=== PATIENT | male | born 1975 | race Hispanic/Latino ===

== ENCOUNTER → 2024-12-11 | Day surgery (SDC) | payer OTHER ==
[2024-12-06 09:25] VITALS: BMI 24.7
[~2024-12-11] MED LIST: Bupivacaine/Epinephrine 0.25% 30 ML VIAL ONE; CEFAZOLIN 2 GM VIAL ONE; HYDROcodone/Acetaminophen 5/325 mg Tablet ONE; HYDROmorphone 0.5 MG/0.5 ML SYRINGE ONE; Ketorolac Tromethamine 30 MG (1 mL) VIAL ONE; Lidocaine 1% PF 5 ML VIAL ONE; Ondansetron PF 4 MG/2 ML Vial ONE; PROPOFOL 20 ML ONE; Rocuronium Bromide 10 MG/ML (10ML VIAL) ONE; SUGAMMADEX SODIUM 200 MG/2 ML VIAL ONE
== END | disposition home or self-care (01) ==
LOC: CSHSDC 11:09
PROVIDERS: ATTEND Surgery
PROC: 0YQ64ZZ Repair Left Inguinal Region, Percutaneous Endoscopic Approach (ICD-10-PCS; principal; 2024-12-11)
DX: K40.90 Unilateral inguinal hernia, without obstruction or gangrene, not specified as recurrent (principal)
CPT/HCPCS: C1781; J1171; J1885; J2405; J2704; S2900